=== PATIENT | male | born 1960 | race African-American/Black ===

== ENCOUNTER 2017-04-17 23:58 | Emergency (ER) | payer BC ==
[~2017-04-17] VITALS: Ht 188 cm; Wt 104.3 kg
--- NOTE | ~2017-04-17 | EKG ---
[address] [place] [address] ELECTROCARDIOGRAM REPORT Name: JAROD BRUNSON [id number] Admission: 04/17/17 Attend Phys: Discharge: 04/18/17 Date of : 60 Report #: [id number] THIS REPORT FOR: //name// [facility] ED Test Date: 2017-04-18 Test Time: 00:06:11 Pat Name: JAROD BRUNSON Department: Room: Gender: M Admissions Gate Attendant: CARLYLE : 1960 Requested By: Macy Raman Order Number: [id number] MD: Mike Leigh Measurements Intervals [place] Rate: 56 P: -70 [place]: 174 QRS: 50 QRSD: 96 T: 12 QT: 441 QTc: 426 Interpretive Statements Sinus or ectopic atrial rhythm Probable left atrial enlargement Left ventricular hypertrophy No previous ECG available for comparison Electronically Signed On 04-18-2017 20:22:32 CDT by Mike Leigh [email or web address] <ELECTRONICALLY SIGNED> By: Mike Leigh MD 04/18/172021 0006 0006 MD GUILLE Edwards
[~2017-04-17 23:58] MED LIST: CLARINEX-D 121 EACH PO; IBUPROFEN 800800 M1 PO; IBUPROFEN 800800 MG PO
[2017-04-18] MEDS ORDERED: CLARITIN10 MG (00:23)
[2017-04-18] MEDS ORDERED: VITAMINC500 PO (00:24)
[2017-04-18] MEDS ORDERED: FISH OIL 1,001000 M2 PO (00:24)
[2017-04-18] MEDS ORDERED: VITAMIN E400 UNIT PO (00:24)
[2017-04-18] MEDS ORDERED: CENTRUM SILVER1 EAC2 PO (00:24)
[2017-04-18] MEDS ORDERED: CO Q-10100 MG PO (00:25)
[2017-04-18] MEDS ORDERED: GLUCOSAMINE-CH1 EACH (00:25)
[2017-04-18] MEDS ORDERED: [UNRECOGNIZED DRUG - OTHER] (00:26)
[2017-04-18 00:36] LABS: BASOPHILS 0.6 % (0.0-2.0); EOSINOPHILS 3.3 % (0.0-3.0); HEMATOCRIT 43.4 % (42.0-52.0); HEMOGLOBIN 14.5 gm/dL (14.0-18.0); LYMPHOCYTES 28.6 % (24.0-44.0); MCH 28.2 pg (26.0-34.0); MCHC 33.4 g/dL (28.0-37.0); MCV 84.4 fL (80.0-100.0); MONOCYTES 11.4 % (1.0-8.0); PLATELET COUNT 159 thou/uL (150-400); POLYS 56.1 % (36.0-66.0); RBC 5.14 mil/uL (4.50-6.00); RDW 14.7 % (10.5-14.5); WBC 7.2 thou/uL (4.0-11.0)
[2017-04-18 00:37] LABS: MANUAL DIFF NO
[2017-04-18 00:43] LABS: ANION GAP 11 mmol/L (7-16); BUN 22 mg/dL (7-18); CHLORIDE 102 mmol/L (98-107); CO2 26 mmol/L (21-32); CREATININE 1.4 mg/dL (0.7-1.3); POTASSIUM 3.8 mmol/L (3.5-5.1); SODIUM 139 mmol/L (136-145)
[2017-04-18 00:51] LABS: TROPONIN-I < 0.04 ng/mL (<0.04-0.07)
[2017-04-18 00:52] LABS: GLUCOSE 92 mg/dL (74-106)
[2017-04-18] MEDS ORDERED: VALIUM5 MG PO (00:58)
[2017-04-18 02:02] VITALS: BP 144/92
== END 2017-04-18 02:03 | disposition home or self-care (01) ==
LOC: ER 23:58
PROVIDERS: Emergency Medicine
DX: R55 Syncope and collapse (principal); M54.5 Low back pain